=== PATIENT | male | born 1960 | race American Indian/Alaskan Native ===

== ENCOUNTER 2021-08-17 15:26 | Outpatient (CLI) | payer BC ==
--- NOTE | 2021-08-17 17:27 | XRay Report ---
CHEST 2 VIEWS INDICATION / CLINICAL INFORMATION: COUGH R05.9 STUDY TIME: 1530 COMPARISON: 07/29/2014 FINDINGS: SUPPORT DEVICES: None. HEART / MEDIASTINUM: No significant abnormality. LUNGS / PLEURA: Considering technique differences no significant infiltrates are seen. No pleural eff usions are noted. No pneumothorax. ADDITIONAL FINDINGS: No significant additional findings. Signer Name: Deep Suarez MD Signed: 08/17/2021 5:23 PM Workstation Name: [id number]
== END 2021-08-17 15:27 | disposition home or self-care (01) ==
LOC: SPVIMAG 15:26
PROVIDERS: ATTEND Internal Medicine
DX: R05.9 Cough, unspecified (principal)
CPT/HCPCS: 71046